=== PATIENT | female | born 1995 | race African-American/Black ===

== ENCOUNTER 2019-06-30 14:13 | Emergency (ER) | payer OTHER, SELFPAY ==
[2019-06-30 14:52] VITALS: BP 137/68; PULSE 62; RESP 18; TEMP 36.6; O2SAT 100; BMI 28.9
== END 2019-06-30 15:10 | disposition left against medical advice (07) ==
PROVIDERS: Emergency Provider Emergency Medicine
DX: N93.9 Abnormal uterine and vaginal bleeding, unspecified (principal)
CPT/HCPCS: 99281

== ENCOUNTER 2019-07-02 05:04 | Emergency (ER) | payer OTHER, SELFPAY ==
[2019-07-02 05:16] VITALS: BP 126/61; PULSE 76; RESP 12; TEMP 36.5; O2SAT 98; BMI 29.0
--- NOTE | 2019-07-02 05:25 | ED.NAVMDI ---
HPI - Nausea/Vomiting/Diarrhea General Chief complaint: Nausea/Vomiting/Diarrhea Stated complaint: menses x 22 days, nausea vomiting Time Seen by Provider: 07/02/19 05:07 Source: patient Mode of arrival: Ambulatory Limitations: no limitations History of Present Illness HPI Narrative: 24-year-old female who has had abnormal vaginal bleeding. Cell her primary doctor yesterday who had her increase her control. She took 5 doses of a yesterday per his recommendation. Plan to be is for her to take 4 doses today and then 3 doses and then 2 doses and then 1 does. She states that last night after she took the control she became nauseous. Had some vomiting. Vaginal bleeding has not changed. Came to the emergency department today for the nausea. She did try some Zofran at home without any improvement Related Data Previous Rx's Medication Instructions Recorded promethazine 25 mg PO Q4-6H PRN #10 tab 07/02/19 Allergies Allergy/AdvReac Type Severity Reaction Status Date / Time No Known Drug Allergies Allergy Verified 06/30/19 14:52 Review of Systems Constitutional Constitutional: Denies fever(s) Cardiovascular Cardiovascular: Denies chest pain and Denies dyspnea Respiratory Respiratory: Denies dyspnea Gastrointestinal Gastrointestinal: Reports nausea and Reports vomiting Genitourinary Genitourinary: Reports vaginal discharge Integumentary/Breasts Skin/Breast: Denies rash Patient History Medical History Abnormal vaginal bleeding (Inactive) Social History Smoking Status: Never smoker Smoking Status: Never smoker alcohol intake frequency: a few times a month Substance Use Type: does not use Exam Initial Vital Signs Initial Vital Signs: Vital Signs Temperature 97.7 F 07/02/19 05:16 Pulse Rate 76 07/02/19 05:16 Respiratory Rate 12 07/02/19 05:16 Blood Pressure 126/61 07/02/19 05:16 Pulse Oximetry 98 07/02/19 05:16 Const General: cooperative and comfortable Limitations: mental status not altered HENMT Head: normal to inspection and normocephalic Resp Effort & Inspection: normal respiratory effort Cardio Rate: regular rate GI Inspection: non-distended Skin Lesions: no lesions Rashes: no rashes Neuro General: alert, awake and oriented x3 Cognition: normal cognition Speech: speech normal Extrem General: normal to inspection and capillary refill normal Psych Appearance: grossly normal and well kempt Course Vital Signs Vital signs: Vital Signs - 8 hr 07/02/19 05:16 Temperature 97.7 F Pulse Rate 76 Respiratory Rate 12 Blood Pressure 126/61 Pulse Oximetry 98 MDM - Nausea/Vomiting/Diarrhea MDM Narrative Medical decision making narrative: Not surprise that patient is still having bleeding has only done 1 day of the high does control. She has follow-up already scheduled. Will send home with nausea medication. She is given return precautions and follow-up instructions. She expressed understanding and agreement with plan Discharge Plan Departure Patient Disposition: Home Clinical Impression: Abnormal vaginal bleeding Vomiting Qualifiers: Vomiting type: unspecified Vomiting Intractability: non-intractable Nausea presence: with nausea Qualified Code(s): R11.2 - Nausea with vomiting, unspecified Instructions: DI for Vomiting -- Adult Activity Restrictions/Additional Instructions: Use the nausea medication as needed and as directed. Continue the rest her medications as directed. Keep all of your scheduled medical appointments. Return to the emergency department for any new or worsening symptoms Prescriptions: New promethazine 25 mg tablet 25 mg PO Q4-6H PRN (Reason: nausea and vomiting) Qty: 10 RF: 0 Stand Alone Forms: Work Release Note
== END 2019-07-02 05:31 | disposition home or self-care (01) ==
PROVIDERS: Emergency Provider Emergency Medicine
DX: N93.9 Abnormal uterine and vaginal bleeding, unspecified (principal); R11.2 Nausea with vomiting, unspecified
CPT/HCPCS: 99281